=== PATIENT | female | born 1960 | race Caucasian/White ===

== ENCOUNTER 2025-06-07 10:50 | Emergency (ER) | payer OTHER ==
[~2025-06-07] VITALS: Ht 167.6 cm; Wt 52.2 kg
[2025-06-07] MEDS ORDERED: PRED50TA PO (11:24)
[2025-06-07 11:38] VITALS: BP 110/80; TEMP 98.5; O2SAT 97
== END 2025-06-07 11:39 | disposition home or self-care (01) ==
LOC: ER 10:58
DX: R21 Rash and other nonspecific skin eruption (principal)
CPT/HCPCS: 99283; J7512